=== PATIENT | female | born 1970 | race Caucasian/White ===

== ENCOUNTER 2021-01-14 11:27 | Outpatient (CLI) | payer BC | END 2021-01-14 11:28 | disposition home or self-care (01) | LOC: CSHMAMMO 11:27 | PROVIDERS: ATTEND Obstetrics & Gynecology | DX: Z12.31 Encounter for screening mammogram for malignant neoplasm of breast (principal) | CPT/HCPCS: 77063; 77067 ==

== ENCOUNTER 2023-05-22 09:05 | Outpatient (CLI) | payer BC | END 2023-05-22 09:06 | disposition home or self-care (01) | LOC: CSHMAMMO 09:05 | PROVIDERS: ATTEND Obstetrics & Gynecology | DX: Z12.31 Encounter for screening mammogram for malignant neoplasm of breast (principal) | CPT/HCPCS: 77063; 77067 ==

== ENCOUNTER 2024-07-09 08:20 | Outpatient (CLI) | payer BC | END 2024-07-09 08:21 | disposition home or self-care (01) | LOC: CSHMAMMO 08:20 | PROVIDERS: ATTEND Obstetrics & Gynecology | DX: Z12.31 Encounter for screening mammogram for malignant neoplasm of breast (principal) | CPT/HCPCS: 77063; 77067 ==